=== PATIENT | male | born 1950 | race Caucasian/White ===

== ENCOUNTER 2017-03-12 08:00 | Day surgery (SDC) | payer MEDICAID ==
[2017-03-12] MEDS ORDERED: Lactated Ringer's 500 ML IV ONE (08:55)
[2017-03-12 09:14] VITALS: RESP 14
[2017-03-12] MEDS ORDERED: Propofol 10 mg/ml Inj (20 ML) ONE (10:47)
[2017-03-12 11:27] VITALS: BP 120/63; PULSE 53; TEMP 98; O2SAT 97
== END 2017-03-12 11:29 | disposition home or self-care (01) ==
LOC: H.ENDO 08:00
PROVIDERS: ATTEND Internal Medicine Gastroenterology
DX: R12 Heartburn (principal); K44.9 Diaphragmatic hernia without obstruction or gangrene; K29.70 Gastritis, unspecified, without bleeding; K20.9 Esophagitis, unspecified; E11.9 Type 2 diabetes mellitus without complications; E78.5 Hyperlipidemia, unspecified; I10 Essential (primary) hypertension